=== PATIENT | male | born 1965 | race American Indian/Alaskan Native ===

== ENCOUNTER 2019-07-15 03:55 | Emergency (ER) | payer OTHER ==
[2019-07-15 04:55] LABS: Basophils % (Auto) 0.5 % (0.0-1.8); Eosinophils # (Auto) 0.3 K/mm3 (0.0-0.4); Hematocrit 32.7 % (35.5-45.6); Hemoglobin 10.4 gm/dl (11.8-15.2); Lymphocytes # (Auto) 1.6 K/mm3 (1.2-5.4); Lymphocytes % (Auto) 17.3 % (13.4-35.0); Mean Corpuscular HGB Conc 32 % (32-34); Mean Corpuscular Volume 92 fl (84-94); Monocytes # (Auto) 0.7 K/mm3 (0.0-0.8); Monocytes % (Auto) 7.2 % (0.0-7.3); Platelet Count 245 K/mm3 (140-440); Red Blood Count 3.56 M/mm3 (3.65-5.03); Red Cell Distribution Width 15.5 % (13.2-15.2)
[2019-07-15 05:33] LABS: Calcium 9.2 mg/dL (8.4-10.2)
[2019-07-15] MEDS ORDERED: traMADol 50 MG TAB PO ONE (08:58)
[2019-07-15] MEDS ORDERED: ACETAMINOPHEN 325 MG TAB PO ONE (08:58)
--- NOTE | 2019-07-15 08:58 | Emergency Department Report ---
ED General Adult HPI - General Chief complaint: Extremity Problem,Nontraumatic Stated complaint: BILATERAL LEG NUMBNESS/EDEMA/PAIN Time Seen by Provider: 07/15/19 08:30 Source: patient, RN notes reviewed Mode of arrival: Ambulatory Limitations: No Limitations - History of Present Illness Initial comments: The patient is a 54-year-old gentleman. He is not known to myself previously. He typically follows at the [facility]. 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 He is currently taking Lasix, Bactrim, Tylenol, tramadol, lisinopril and Norvasc. He reports having had a negative outpatient DVT study within the [facility] within the past few weeks. He presents to the ER today with a complaint of nontraumatic acute on chronic bilateral lower extremity swelling and pain. No fever, chills, nausea, vomiting, chest pain, shortness of breath, weakness and/or numbness. Pain is sharp and throbbing, increases with palpation and range of motion, and it decreases with rest. He feels like it is similar to prior episodes of lower extremity dependent edema. -: Gradual, days(s) Location: left, right, lower extremity Quality: other Consistency: other Improves with: other Worsens with: other - Related Data Allergies Allergy/AdvReac Type Severity Reaction Status Date / Time No Known Allergies Allergy Unverified 07/15/19 04:08 ED Review of Systems ROS: Stated complaint: BILATERAL LEG NUMBNESS/EDEMA/PAIN Other details as noted in HPI Constitutional: denies: fever Eyes: denies: eye discharge ENT: denies: congestion Respiratory: denies: cough, SOB at rest, wheezing Cardiovascular: denies: chest pain Gastrointestinal: denies: abdominal pain, nausea, vomiting Musculoskeletal: arthralgia, myalgia Skin: denies: lesions Neurological: denies: weakness Psychiatric: as per HPI Hematological/Lymphatic: as per HPI ED Past Medical Hx - Past Medical History Previous Medical History?: Yes Hx Hypertension: Yes Hx Diabetes: Yes Additional medical history: High chilesterol - Surgical History Past Surgical History?: No - Social History Smoking Status: Never Smoker Substance Use Type: None ED Physical Exam - General Limitations: No Limitations General appearance: alert, in no apparent distress - Head Head exam: Present: atraumatic, normocephalic - Eye Eye exam: Present: normal appearance, EOMI. Absent: nystagmus - ENT ENT exam: Present: normal exam, normal orophraynx, mucous membranes moist, normal external ear exam - Neck Neck exam: Present: normal inspection, full ROM. Absent: tenderness, meningismus - Respiratory Respiratory exam: Present: normal lung sounds bilaterally. Absent: respiratory distress - Cardiovascular Cardiovascular Exam: Present: regular rate, normal rhythm, normal heart sounds. Absent: bradycardia, tachycardia, irregular rhythm, systolic murmur, diastolic murmur, rubs, gallop - GI/Abdominal GI/Abdominal exam: Present: soft, normal bowel sounds. Absent: distended, tenderness, guarding, rebound, rigid, pulsatile mass - Rectal Rectal exam: Present: deferred - Extremities Exam Extremities exam: Present: normal inspection (No palpable cord. Negative Homans sign. Compartments soft.), full ROM, pedal edema, other (2+ pulses noted in the bilateral upper and lower extremities. There is no palpable cord. negative Homans sign. Muscular compartments are soft. The pelvis is stable.). Absent: calf tenderness - Back Exam Back exam: Present: normal inspection, full ROM. Absent: tenderness, CVA tende rness (R) - Neurological Exam Neurological exam: Present: alert, normal gait, other (There is no facial droop. The tongue is midline. Extraocular movements are intact bilaterally. There is 5 out of 5 strength in bilateral upper and lower extremities. Sensation is intact to light touch bilateral upper and lower extremities. There is a normal gait.). Absent: motor sensory deficit - Psychiatric Psychiatric exam: Present: normal affect, normal mood - Skin Skin exam: Present: warm, dry, intact, normal color. Absent: rash ED Course Vital Signs 07/15/19 07/15/19 04:14 10:07 Temperature 98.3 F Pulse Rate 96 H 84 Respiratory 20 18 Rate Blood Pressure 121/54 Blood Pressure 110/51 [Left] O2 Sat by Pulse 92 98 Oximetry ED Medical Decision Making - Lab Data Result diagrams: 07/15/19 04:27 07/15/19 04:27 Vital Signs 07/15/19 07/15/19 04:14 10:07 Temperature 98.3 F Pulse Rate 96 H 84 Respiratory 20 18 Rate Blood Pressure 121/54 Blood Pressure 110/51 [Left] O2 Sat by Pulse 92 98 Oximetry Lab Results 07/15/19 07/15/19 07/15/19 Range/Units 04:27 04:27 04:27 WBC 9.3 (4.5-11.0) K/mm3 RBC 3.56 L (3.65-5.03) M/mm3 Hgb 10.4 L (11.8-15.2) gm/dl Hct 32.7 L (35.5-45.6) % MCV 92 (84-94) fl MCH 29 (28-32) pg MCHC 32 (32-34) % RDW 15.5 H (13.2-15.2) % Plt Count 245 (140-440) K/mm3 Lymph % (Auto) 17.3 (13.4-35.0) % [place]y % (Auto) 7.2 (0.0-7.3) % Eos % (Auto) 3.0 (0.0-4.3) % Baso % (Auto) 0.5 (0.0-1.8) % Lymph # 1.6 (1.2-5.4) K/mm3 [place]y # 0.7 (0.0-0.8) K/mm3 Eos # 0.3 (0.0-0.4) K/mm3 Baso # 0.0 (0.0-0.1) K/mm3 Seg Neutrophils % 72.0 H (40.0-70.0) % Seg Neutrophils # 6.7 (1.8-7.7) K/mm3 Sodium 135 L (137-145) mmol/L Potassium 4.9 (3.6-5.0) mmol/L Chloride 94.8 L (98-107) mmol/L Carbon Dioxide 28 (22-30) mmol/L Anion Gap 17 mmol/L BUN 32 H (9-20) mg/dL Creatinine 1.8 H (0.8-1.5) mg/dL Estimated GFR 47 ml/min BUN/Creatinine Ratio 18 % Glucose 147 H (75-100) mg/dL Calcium 9.2 (8.4-10.2) mg/dL Magnesium 2.10 (1.7-2.3) mg/dL Total Bilirubin 0.30 (0.1-1.2) mg/dL Direct Bilirubin < 0.2 (0-0.2) mg/dL AST 30 (5-40) units/L ALT 19 (7-56) units/L Alkaline Phosphatase 102 (35-129) units/L Total Creatine Kinase 248 H (55-170) units/L NT-Pro-B Natriuret Pep 163.4 (0-900) pg/mL Total Protein 7.7 (6.3-8.2) g/dL Albumin 3.9 (3.9-5) g/dL Albumin/Globulin Ratio 1.0 % - Medical Decision Making Differential diagnosis, including but not limited to: Dependent edema, request for second opinion, renal insufficiency, hepatic insufficiency Assessment and plan: 54-year-old gentleman, who is not currently tachycardic, tachypneic or hypoxic, who denies DVT and pulmonary embolism risk factors, who is low risk by Wells criteria, who also endorses negative outpatient DVT study within the past few weeks, resenting with acute on chronic bilateral lower extremity swelling, which is most likely secondary to dependent edema. Laboratory studies unremarkable with exception of minimal renal insufficiency. He is otherwise afebrile with reassuring vital signs and appears to be quite comfortable. The patient does not appear to have an emergent medical condition at this time. We will recommend discontinuation of tramadol, as it may lower seizure threshold, not an NSAID candidate at this time secondary to mild renal insufficiency, can continue Tylenol, weightbearing as tolerated, compression stockings, he will need [facility]. For the moment, we will withhold NSAIDs. Not an opioid/narcotic candidate at this time. Critical care attestation.: If time is entered above; I have spent that time in minutes in the direct care of this critically ill patient, excluding procedure time. ED Disposition Clinical Impression: Dependent edema, Renal insufficiency Disposition: DC-01 TO HOME OR SELFCARE Is pt being admited?: No Does the pt Need Aspirin: No Condition: Stable Additional Instructions: Weightbearing as tolerated. Patient may take acetaminophen/Tylenol [id number], 650 mg by mouth, every 4-6 hours as needed for pain. Recommend the patient not take tramadol, as this medication may lower seizure threshold and may provoke seizures. Please make certain to avoid foods that are high in salt content, drink at least 2 to 3 cups of water per day, and recommend that patient purchase [id number] compression stockings. Patient should continue Lasix, 20 mg once daily, and we recommend that the patient follow-up with his outpatient primary care doctor within the next 7 to 10 days. Return to the emergency room right away with new, worsened or different symptoms, or symptoms not present on the initial emergency room evaluation Referrals: PRIMARY CARE, [Primary Care Provider] - 3-5 Days
[2019-07-15 09:26] LABS: Alanine Aminotransferase 19 units/L (7-56); Albumin 3.9 g/dL (3.9-5)
[2019-07-15 09:30] LABS: Bilirubin,Direct < 0.2 mg/dL (0-0.2)
[2019-07-15 10:08] VITALS: BP 110/51
== END 2019-07-15 11:44 | disposition home or self-care (01) ==
LOC: ED 03:55
DX: R60.9 Edema, unspecified (principal); N28.9 Disorder of kidney and ureter, unspecified; I10 Essential (primary) hypertension; E11.9 Type 2 diabetes mellitus without complications; E78.00 Pure hypercholesterolemia, unspecified
CPT/HCPCS: 36415; 80048; 80076; 82550; 83735; 83880; 85025

== ENCOUNTER 2020-02-15 21:33 | Emergency (ER) | payer OTHER | END 2020-02-15 21:45 | disposition left against medical advice (07) | LOC: ED 21:33 | DX: M25.511 Pain in right shoulder (principal); M79.671 Pain in right foot; Z53.21 Procedure and treatment not carried out due to patient leaving prior to being seen by health care provider ==